=== PATIENT | male | born 1975 | race Two or more races ===

== ENCOUNTER 2018-01-15 08:10 | Outpatient (CLI) | payer OTHER | END 2018-01-15 23:59 | disposition home or self-care (01) | LOC: WOU 08:10 | PROVIDERS: ATTEND Podiatrist Foot & Ankle Surgery | DX: I87.2 Venous insufficiency (chronic) (peripheral) (principal); L97.212 Non-pressure chronic ulcer of right calf with fat layer exposed; R60.0 Localized edema | CPT/HCPCS: 87070; 87075; 87077; 99205; Z7610; A6402; G0463 ==

== ENCOUNTER 2018-02-12 08:04 | Outpatient (CLI) | payer OTHER | END 2018-02-12 23:59 | disposition home or self-care (01) | LOC: WOU 08:04 | PROVIDERS: ATTEND Podiatrist Foot & Ankle Surgery | DX: I87.2 Venous insufficiency (chronic) (peripheral) (principal); L97.212 Non-pressure chronic ulcer of right calf with fat layer exposed; L97.812 Non-pressure chronic ulcer of other part of right lower leg with fat layer exposed; R60.0 Localized edema | CPT/HCPCS: 11042; A6402; Z7610 ==

== ENCOUNTER 2018-02-26 08:00 | Outpatient (CLI) | payer OTHER | END 2018-02-26 23:59 | disposition home or self-care (01) | LOC: WOU 08:00 | PROVIDERS: ATTEND Podiatrist Foot & Ankle Surgery | DX: I87.2 Venous insufficiency (chronic) (peripheral) (principal); L97.812 Non-pressure chronic ulcer of other part of right lower leg with fat layer exposed; R60.0 Localized edema; Z79.899 Other long term (current) drug therapy | CPT/HCPCS: 11042; A6402; Z7610 ==

== ENCOUNTER 2018-03-05 08:00 | Outpatient (CLI) | payer OTHER | END 2018-03-05 23:59 | disposition home or self-care (01) | LOC: WOU 08:00 | PROVIDERS: ATTEND Podiatrist Foot & Ankle Surgery | DX: I87.2 Venous insufficiency (chronic) (peripheral) (principal); L97.812 Non-pressure chronic ulcer of other part of right lower leg with fat layer exposed; R60.0 Localized edema; R03.0 Elevated blood-pressure reading, without diagnosis of hypertension | CPT/HCPCS: 11042; A6402; Z7610 ==

== ENCOUNTER 2018-03-19 08:06 | Outpatient (CLI) | payer OTHER | END 2018-03-19 23:59 | disposition home or self-care (01) | LOC: WOU 08:06 | PROVIDERS: ATTEND Podiatrist Foot & Ankle Surgery | DX: I87.2 Venous insufficiency (chronic) (peripheral) (principal); L97.812 Non-pressure chronic ulcer of other part of right lower leg with fat layer exposed; R60.0 Localized edema | CPT/HCPCS: 11042; A6402; Z7610 ==

== ENCOUNTER 2022-01-25 10:50 | Emergency (ER) | payer OTHER ==
[~2022-01-25] VITALS: Ht 195.6 cm; Wt 133.4 kg
--- NOTE | 2022-01-25 11:05 | NUR ---
BIBWIFE C/O NOSEBLEED X2HRS, HX OF HTN, HYPERTENSIVE UPON ARRIVAL, MD AWARE. NOSE CLIP APPLIED TO NOSE. AWAITING MD ORDERS.
[2022-01-25] MEDS ORDERED: LIDOCAINE 1%-EPI 1:100,000 20 ML VIAL ONE (11:39)
[2022-01-25 13:09] VITALS: BP 164/110
--- NOTE | 2022-01-25 13:09 | NUR ---
Patient discharged to home in stable condition. Written and verbal after care instructions given. Patient verbalizes understanding of instruction.
== END 2022-01-25 13:10 | disposition home or self-care (01) ==
LOC: ER 10:53
DX: R04.0 Epistaxis (principal); I10 Essential (primary) hypertension
CPT/HCPCS: 99283; 30901; J3490